=== PATIENT | male | born 1935 | race Caucasian/White ===

== ENCOUNTER → 2018-01-26 | Outpatient (CLI) | payer OTHER | LOC: FIMAGING 11:19 | PROVIDERS: ATTEND Internal Medicine | DX: J98.11 Atelectasis (principal); E78.5 Hyperlipidemia, unspecified; I48.91 Unspecified atrial fibrillation; R06.02 Shortness of breath; Z95.2 Presence of prosthetic heart valve ==

== ENCOUNTER 2018-05-18 09:02 | Observation (INO) | payer OTHER ==
--- NOTE | 2018-05-18 09:20 | CPEKG ---
Heart Rate: 87 RR Interval: 690 QRSD Interval: 88 QT Interval: 396 QTC Interval: 477 QRS [place]: -86 T Wave G[place]: 54 EKG Severity - ABNORMAL ECG - EKG Impression: ATRIAL FIBRILLATION, V-RATE 72-106 EKG Impression: MULTIFORM VENTRICULAR PREMATURE COMPLEXES EKG Impression: INFERIOR INFARCT, OLD EKG Impression: BORDERLINE R WAVE PROGRESSION, ANTERIOR LEADS EKG Impression: BORDERLINE PROLONGED QT INTERVAL Electronically Signed By: Nataly Sams 18-May-2018 15:01:24
--- NOTE | 2018-05-18 09:24 | EDPHY ---
H & P Stated Complaint: 3 episodes of 'garbled speech' since . H/A's. Time Seen by Provider: 05/18/18 09:19 HPI/ROS: CHIEF COMPLAINT: Speech difficulty HISTORY OF PRESENT ILLNESS: The patient is an anticoagulated 82 y/o male arriving with his at the recommendation of his check pilot for evaluation of intermittent speech difficulty over the last couple days. His medical history is significant for atrial fibrillation (Eliquis), stroke 2 years ago, and two aortic valve repairs one of these after his recent stroke ([facility] two years ago). Per his , he had word-finding difficulty on Friday and Friday "and when he did speak the words were gibberish." Yesterday, while at a republican the patient noticed the same garbled speech when talking with a friend. These episodes lasted less than a minute each time. He had a headache 2 nights ago "and days before that" per . He did not take any medication for this headache and it has resolved. He has noticed infrequent right or left hand tingling over the last year, but not obviously associated with his recent symptoms. He denies fever, chest pain, dyspnea, confusion, recent vision changes , recent trauma. He did see his GI over a week ago and was started on antibiotics for suspected c-difficile. He is having 2-3 episodes daily of diarrhea, which is an improvement since starting antibiotics. He is compliant with his medications including his Eliquis. REVIEW OF SYSTEMS: A 10 point review of systems was performed and is negative with the exception of the elements mentioned in the history of present illness. Past medical history: 1. Atrial fibrillation 2. Stroke 2 years ago, went to [facility], recommended redoing valve repair 3. C-difficile infections 4. Emphysema Past surgical history: 1. Aortic valve replacement 2. Aortic root and valve replaced again after stroke 2 yrs ago Family history: Noncontributory Social history: at bedside. Nonsmoker. Whiskey daily. 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 Forensic Anthropologist: Dr. Mcnamara. Adult Physical: General Appearance: Alert, no acute distress. BP 133/88. Eyes: Pupils equal and round, no conjunctival injection, no discharge. ENT, Mouth: Mucous membranes are moist, no oropharyngeal erythema or edema. Neck: No lymphadenopathy, supple. Respiratory: Lungs have expiratory wheezes to auscultation bilaterally; no rales or rhonchi. Cardiovascular: Regular rate and rhythm; no murmur, rub, or gallop. Gastrointestinal: Abdomen is soft and non tender, no masses or organomegaly. Skin: Warm and dry, no rashes, normal color. Back: Nontender to palpation over the thoracolumbar spine. Extremities: No lower extremity edema, no calf tenderness or swelling. Neurological: Alert and oriented. Moving all four extremities easily and equally. Cranial nerves II through XII are examined and are intact (visual acuity not tested). Strength is 5 over 5 bilaterally with testing of all major motor groups. Sensation is intact to light touch over all 4 extremities. Deep tendon reflexes are 1+ in the biceps and knees bilaterally. Gait is normal. Pawcvs-gu-itpi is performed accurately. Psychiatric: Normal affect. - Personal History Current Tetanus Diphtheria and Acellular Pertussis (TDAP): Yes - Medical/Surgical History Hx Asthma: No Hx Chronic Respiratory Disease: No Hx Diabetes: No Hx Cardiac Disease: Yes Hx Renal Disease: No Hx Cirrhosis: No Hx Alcoholism: No Hx HIV/AIDS: No Hx Splenectomy or Spleen Trauma: No Other PMH: .aortic valve replacement/04/24/16 GB removal/a fob - Social History Smoking Status: Former smoker Constitutional: Initial Vital Signs Temperature (C) 36.8 C 05/18/18 09:03 Heart Rate 89 05/18/18 09:03 Respiratory Rate 16 05/18/18 09:03 Blood Pressure 133/88 H 05/18/18 09:03 O2 Sat (%) 92 05/18/18 09:03 O2 Delivery Mode Room Air Allergies/Adverse Reactions: No Known Allergies Allergy (Verified 09/17/16 09:18) Home Medications: Medication Instructions Recorded Metoprolol Tartrate [Lopressor 25 25 mg PO BID 04/24/16 mg (*)] Albuterol [Proventil Inhaler HFA 1 - 2 puffs IH DAILY PRN 09/17/16 (*)] Fluticasone Nasal [Flonase Nasal 1 sprays NASAL DAILY PRN 09/17/16 [place] (RX)] Tadalafil [Cialis] 5 mg PO DAILY 09/17/16 Amoxicillin Trihydrate 500 mg PO Q6HRS 05/18/18 [Amoxicillin] Apixaban [Eliquis] 2.5 mg PO BID 05/18/18 Cetirizine [ZyrTEC 10 mg (*)] 10 mg PO DAILY PRN 05/18/18 Cholestyramine (with Sugar) 4 gm PO DAILY PRN 05/18/18 [Cholestyramine Packet] Escitalopram Oxalate [Lexapro] 20 mg PO HS 05/18/18 Fluticasone/Vilanterol [Breo 1 each IH DAILY 05/18/18 Ellipta 100-25 Mcg INH] Vancomycin [Vancomycin (*)] 125 mg PO BID 05/18/18 Medical Decision Making - Diagnostics Imaging Results: Imaging Impressions Brain MRI 05/18/18 09:54 Impression: Underlying atrophy and advanced white matter microvascular ischemic gliosis. Prior infarction inferior aspect right cerebellar hemisphere. No evidence of acute cortical ischemia. Results called to Dr. Nataly Sams at 11:20 a.m. Imaging: Discussed imaging studies w/ freight caller Radiologist, I viewed and interpreted images myself ED Course/Re-evaluation: This is an anticoagulated 82 y/o male with significant cardiac history and prior stroke history who presents for evaluation following three brief episodes of word-finding and garbled speech over the last 3 days with associated headache. Neuro exam is nonfocal here; no aphasia. Story is concerning for TIAs. Plan for IV, labs, EKG, brain MRI, and admission if patient is amenable. The 12 lead EKG was interpreted by myself. Atrial fibrillation. See hard copy and/or "tracemaster" electronic copy for interpretation. Labs unremarkable. Brain MRI: No acute stroke, old right cerebellar stroke, atrophy, white matter disease. Dr. Mcnamara, check pilot, assessed patient at bedside. He would like carotid US , neurology consult, and MRI (has been done) for TIA work up. Spoke with hospitalist service. Dr. Taylor accepts admission. Patient remained stable while in the emergency department. He had no episodes of speech difficulty. Differential Diagnosis: I considered a differential diagnosis that includes but is not limited to CVA ( ischemic or hemorrhagic), TIA, seizure, electrolyte abnormality, and infection. - Data Points Laboratory Results: Laboratory Results 05/18/18 09:30 05/18/18 09:30 05/18/18 05/18/18 05/18/18 09:30 09:30 09:30 WBC 8.73 10^3/uL 10^3/uL (3.80-9.50) RBC 5.22 10^6/uL 10^6/uL (4.40-6.38) Hgb 16.1 g/dL g/dL (13.7-17.5) Hct 47.6 % % (40.0-51.0) MCV 91.2 fL fL (81.5-99.8) MCH 30.8 pg pg (27.9-34.1) MCHC 33.8 g/dL g/dL (32.4-36.7) RDW 12.9 % % (11.5-15.2) Plt Count 191 10^3/uL 10^3/uL (150-400) MPV 10.1 fL fL (8.7-11.7) Neut % (Auto) 70.7 % % (39.3-74.2) Lymph % (Auto) 17.4 % % (15.0-45.0) [place] % (Auto) 8.2 % % (4.5-13.0) Eos % (Auto) 2.4 % % (0.6-7.6) Baso % (Auto) 0.7 % % (0.3-1.7) Nucleat RBC Rel Count 0.0 % % (0.0-0.2) Absolute Neuts (auto) 6.17 10^3/uL 10^3/uL (1.70-6.50) Absolute Lymphs (auto) 1.52 10^3/uL 10^3/uL (1.00-3.00) Absolute Monos (auto) 0.72 10^3/uL 10^3/uL (0.30-0.80) Absolute Eos (auto) 0.21 10^3/uL 10^3/uL (0.03-0.40) Absolute Basos (auto) 0.06 10^3/uL 10^3/uL (0.02-0.10) Absolute Nucleated RBC 0.00 10^3/uL 10^3/uL (0-0.01) Immature Gran % 0.6 % % (0.0-1.1) Immature Gran # 0.05 10^3/uL 10^3/uL (0.00-0.10) PT 15.1 SEC H SEC (12.0-15.0) INR 1.17 H (0.83-1.16) APTT 30.9 SEC SEC (23.0-38.0) Sodium 136 mEq/L mEq/L (135-145) Potassium 4.4 mEq/L mEq/L (3.3-5.0) Chloride 105 mEq/L mEq/L (97-110) Carbon Dioxide 21 mEq/l L mEq/l (22-31) Anion Gap 10 mEq/L mEq/L (8-16) BUN 20 mg/dL mg/dL (7-23) Creatinine 1.1 mg/dL mg/dL (0.7-1.3) Estimated GFR > 60 Glucose 137 mg/dL H mg/dL (70-100) Calcium 9.0 mg/dL mg/dL (8.5-10.4) Departure - Departure Disposition: [facility] Inpatient Acute Clinical Impression: Garbled speech TIA (transient ischemic attack) Qualifiers: Transient cerebral ischemia type: other Qualified Code(s): G45.8 - Other transient cerebral ischemic attacks and related syndromes Condition: Fair Report Scribed for: Nataly Sams Report Scribed by: Kim Bliss Date of Report: 05/18/18 Time of Report: 09:40 Physician Review and Approval Statement: 05/18/18 15:16 Portions of this note were transcribed by the medical office administrator. I, Dr. Nataly Sams, personally performed the history, physical exam, and medical decision- making; and confirmed the accuracy of the information in the transcribed note.
[2018-05-18 10:14] LABS: PLATELET COUNT 191 10^3/uL (150-400)
[2018-05-18 10:24] LABS: INR 1.17 (0.83-1.16); PROTIME(PATIENT) 15.1 SEC (12.0-15.0)
[2018-05-18] MEDS ORDERED: ONDANSETRON DISINTEGRATING 4 MG TAB PO PRN (11:45)
[2018-05-18] MEDS ORDERED: ONDANSETRON 4 MG/2 ML VIAL IVP PRN (11:45)
[2018-05-18] MEDS ORDERED: IOPAMIDOL (ISOVUE 370) 100 ML BTL IV ONE (12:28)
[2018-05-18] MEDS ORDERED: LABETALOL HCL 5 MG/ML 20 ML MDV IVP PRN (12:52)
--- NOTE | 2018-05-18 14:04 | GHP ---
[f rep st] HISTORY AND PHYSICAL DATE OF ADMISSION: 05/18/2018 CHIEF COMPLAINT: Garbled speech. PRIMARY SURGICAL TECHNICIAN: Glenn Mcnamara MD. HPI: 82-year-old male with history of atrial fibrillation on Eliquis, aortic stenosis status post repair, who was advised by his fresh foods technician to be evaluated for TIA. Per his , he has had word difficulty finding on Friday, Friday. They were at a alliance party last night and he said he could not get the words out so left. He spoke to his fresh foods technician who recommended he come in for further evaluation. Denies any focal weakness. Has had intermittent headaches over the last couple of days. No slurred speech or vision changes. He is currently on treatment for C difficile. Denies any other infectious symptoms. REVIEW OF SYSTEMS: I completed a 10-point review of systems, negative except as noted in HPI. PAST MEDICAL HISTORY: 1. COPD. 2. History of prior stroke. 3. BPH. 4. Atrial fibrillation on Eliquis. 5. Aortic stenosis, status post atrial valve repair x2 in 2006 and 2015. 6. Coronary artery disease. 7. Zoster. 8. Hyperlipidemia. 9. Chronic hypoxic respiratory failure. 10. PVCs. PAST SURGICAL HISTORY: Cardiac ablation, atrial valve replacements in 2006 and then aortic root and valve replacement 2015, appendectomy, cholecystectomy, diskectomy, lumbar surgery. SOCIAL HISTORY: He lives with his . They have been 42 years. 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 Prior tobacco history, quit 30 years ago. Drinks 1 liquor beverage a night. No illicits. FAMILY HISTORY: Noncontributory. ALLERGIES: None. HOME MEDICATIONS: Eliquis, potassium, metoprolol 25 mg, Lasix, Flonase, colchicine, Cialis, allopurinol, albuterol, vancomycin. Awaiting med reconciliation to further detail meds. PHYSICAL EXAM: VITAL SIGNS: Temperature 37. Blood pressure is 121 to 160 over 80 over 102. Heart rate is in the 70s, respirations 18, 93% on room air. GENERAL: Well-appearing male in no acute distress. HEENT: PERRLA. EOMI. Soft-spoken. CV: Irregularly irregular. No murmurs, gallops, or rubs. LUNGS : Clear. No crackles or wheezing. ABDOMEN: Obese, but soft, nontender, and nondistended. Positive bowel sounds. : No Curry. MUSCULOSKELETAL: 5/5 upper, lower extremity strength. NEUROLOGIC: 2-12 intact. Normal sensation to touch. Symmetric patellar reflexes. PSYCH: Alert and oriented x3. TEST DATA: 1. EKG personally reviewed by me. Atrial fibrillation with PVCs. 2. Carotid Doppler less than 50% stenosis in the right ICA and left ICA. 3. Brain MRI: Prior infarction inferior aspect of the right cerebellar hemisphere. No evidence of acute ischemia. ASSESSMENT AND PLAN: 1. Garbled speech: Concern for transient ischemic attack. He is currently without symptoms. His MRI does not show acute ischemia, but an old cerebellar infarct. He is anticoagulated on Eliquis. He is not on aspirin as he is fearful of this in combination of Eliquis for a bleed. Query if this could be unmasking his old stroke with his acute gastric infection. Dr. Brannon with Neurology will evaluate. Echocardiogram and CTA are pending. Control blood pressure per protocol. Physical Therapy, Occupational Therapy, and Speech evaluations. 2. Chronic obstructive pulmonary disease. No evidence of exacerbation. 3. History of coronary artery disease. Resume home medications. 4. History of aortic stenosis status post valve replacement x2. Dr. Mcnamara has evaluated patient. 5. Benign prostatic hypertrophy. Resume home medications. 6. Diet regular. 7. Deep vein thrombosis prophylaxis. Sequential compression devices. He is on Eliquis. 8. Recent C diff infection: on BID dosing outpatient, change to QID 9. Code status: DNR DISPOSITION: Patient warrants observation admission given concern for TIA warranting further imaging, neurology consultation, echocardiogram. /[id number]/MODL MTDD
[2018-05-18] MEDS ORDERED: CETIRIZINE 10 MG TAB PO PRN (16:30)
[2018-05-18] MEDS ORDERED: FLUTICASONE NASAL 120 SPRAYS/16 GM MDI EACHNARE PRN (16:30)
[2018-05-18] MEDS ORDERED: CHOLESTYRAMINE/SUCROSE 4 GM PKT PO PRN (16:30)
[2018-05-18] MEDS ORDERED: ALBUTEROL 60 PUFFS/8 GM MDI IH PRN (16:30)
[2018-05-18] MEDS ORDERED: VANCOMYCIN 125 MG/2.5 ML UDL PO SCH (16:45)
[2018-05-18] MEDS: ACETAMINOPHEN 325 MG TAB PO PRN (18:27)
[2018-05-18] MEDS: APIXABAN 5 MG TAB PO SCH (20:31)
[2018-05-18] MEDS: METOPROLOL TARTRATE 25 MG TAB PO SCH (20:32)
[2018-05-18] MEDS: VANCOMYCIN 125 MG/2.5 ML UDL PO SCH (20:33)
[2018-05-18] MEDS ORDERED: ESCITALOPRAM OXALATE 10 MG TAB PO SCH (21:00)
[2018-05-18] MEDS ORDERED: NON-FORMULARY NEW DRUG (Vancomycin 125 MG) PO SCH (21:00)
[2018-05-18] MEDS ORDERED: APIXABAN 2.5 MG TAB PO SCH (21:00)
[2018-05-19] MEDS ORDERED: Fluticasone/Vilanterol [Breo Ellipta 100-25 Mcg Inh] IH SCH (09:00)
[2018-05-19] MEDS: ACETAMINOPHEN 325 MG TAB PO PRN (09:40)
[2018-05-19] MEDS: VANCOMYCIN 125 MG/2.5 ML UDL PO SCH (09:40)
[2018-05-19] MEDS: APIXABAN 5 MG TAB PO SCH (09:44)
[2018-05-19] MEDS: METOPROLOL TARTRATE 25 MG TAB PO SCH (09:44)
--- NOTE | 2018-05-19 09:56 | NEUROPROG ---
Assessment: [id number] - Neurology Consult: - CC: Probable TIA causing speech disturbance - HPI: Pt on Eliquis for afib and prior right cerebellar stroke reported since 05/14/18 he has had 3 episodes of speech disturbance lasting < 1 minute with return to normal afterwards. He denied any other associated neurologic issues. He did report 1 week ago he began abx for C.diff. He denied missing any Eliquis dosing. He was admitted by [facility] on 05/18/18 for a TIA evaluation. Brain MRI on showed no acute stroke or any acute changes. CTA head and carotid U/S showed some atherosclerotic disease of the ICAs but it was < 50%. I initially saw the patient on 05/19/18. His neurologic exam was normal. He denied any complaints and said he felt back to normal. - PMHx: afib on Eliquis, prior R cerebellar CVA, heart valve surgery, emphysema, C -diff infx - SHx: nonsmoker FHx: NC - ROS: Pt denied acute fever, total vision loss, active severe chest pain, respiratory failure, total body severe rash, total bowel/bladder incontinence, psychosis, active seizures, or active bleeding - O: VS reviewed General: Alert Eyes: Fundoscopic exam not able to visualize optic disks CV: Heart RRR, no murmur, no carotid bruit Lungs: Clear to auscultation bilaterally, no rhonchi or rales Neuro: - Mental: . Oriented x person/place/date . concentration appears normal . speech fluency/comprehension normal . memory appears normal . fund of knowledge appear intact - Cranial Nerves: . II: PERRL, VFFTC . III/IV/: EOMI, no nystagmus, normal smooth pursuits, no Ptosis . V: facial sensation intact to LT . VII: face symmetric to eye closure and smile . VIII: hearing intact to conversation . IX/X: uvula raises symmetrically . XI: SCM 5/5 B/L strength . XII: tongue protrudes midline w/nl strength - Motor: . Tone: normal tone in all 4 extremity . Strength: no pronator drift, strength 5/5 throughout (B/L delt, bic, tri, hand water engineer, hf/he, df/pf) - Reflexes: B/L bic/BR/patella 2/4 - Sensory: all 4 extremity intact to light touch - Coord: [id number] wnl, TONIE wnl, [id number]-[id number] wnl - Gait: deferred - NIH SS 0 - Labs: 05/18/18- CBC wnl, INR 1.17H, Chem CO2 21L Gluc 137H, H1AC 5.5, LDL 72 - Rads: 05/18/18- Brain MRI w/o con: Underlying atrophy and advanced white matter microvascular ischemic gliosis. Prior infarction inferior aspect right cerebellar hemisphere. No evidence of acute cortical ischemia. (I personally visualized the images on 05/18/18) 05/18/18- Carotid U/S: B/L carotid stenosis (< 50%) 05/18/18- Head CTA: mod atherosclerosis in b/l ICAs - Assessment: 1. TIA causing 3 episodes of < 1 minute of speech disturbance between 05/14/18 and 05/18/18: Neurologic exam on 05/19/18 was normal. I am not sure if his transient speech disturbance episodes are a sundowning effect possibly from mild vascular dementia (given prior stroke) or less likely 3 TIAs with no MRI stroke seen. He also has atherosclerotic disease in his B/L carotids (< 50%). I recommend a statin with LDL goal < 70 to address possible TIA and b/l carotid atherosclerotic disease. Otherwise continue Eliquis dosing. - 2. Afib with prior R cerebellar CVA, on Eliquis - Plan: - Work closely with PCM to ensure blood pressure < 140/90, H1AC < 7.0, and LDL < 70 - Recommend statin for LDL goal < 70 (72) - Blood pressure < 140/90 - TTE to ensure no cardiac thrombus - Continue Eliquis for stroke prevention in setting of afib and prior stroke - PT/OT/SPeech evaluation for any rehab needs - No further neurologic w/u needed, neurology will sign off - F/U in neurology clinic 1-4 weeks after discharge with Dr. Brannon Objective: Vital Signs Temp Pulse Resp BP Pulse Ox 36.3 C 75 19 140/110 H 99 05/19/18 08:00 05/19/18 08:56 05/19/18 08:56 05/19/18 08:00 05/19/18 08:56 05/18/18 05/19/18 05/20/18 05:59 05:59 05:59 Intake Total 400 Output Total 150 Balance 250 PT 15.1 SEC (12.0-15.0) H 05/18/18 09:30 INR 1.17 (0.83-1.16) H 05/18/18 09:30 Allergies/Adverse Reactions: No Known Allergies Allergy (Verified 09/17/16 09:18)
--- NOTE | 2018-05-19 12:23 | HOSPPROG ---
Hospitalist Progress Note Assessment/Plan: Patient is an 82 y/o male who presented to the ER with garbled speech. Today is my first encounter w the patient, chart reviewed. *TIA w associated garbled speech -Brain MRI w/o con: Underlying atrophy and advanced white matter microvascular ischemic gliosis. Prior infarction inferior aspect right cerebellar hemisphere. No evidence of acute cortical ischemia. -Carotid U/S: B/L carotid stenosis (< 50%) - Head CTA: mod atherosclerosis in b/l ICAs -add a statin, LDL is 72 -A1C is stable at 5.5 -? concern if these transient speech disturbance episodes are from mild vascular dementia w given prior stroke -goal bp <140/90 -reviewed telemetry and he has been in afib rate controlled -echo pending now, tech doing this, reviewed with Dr Brannon and he wanted this done prior to dc to ensure no cardiac thrombus *Afib with prior right cerebellar CVA -Eliquis *Hx of c diff -per patient and , he was started on oral vancomycin for likely C diff -he's to be on antibiotics for an upcoming dental procedure/discussed with doctor bank consultant for PCP and they are aware he will be started on abx *COPD -no exacerbation *hx of s/p valve replacement *BPH -home meds *Plan: reviewed his care w Dr Brannon, will dc after echo is complete. Dr Mcnamara is at the bedside Subjective: Patient has no complaints, ready to be dc. Delmy at bedside. Objective: Vital Signs Temp Pulse Resp BP Pulse Ox 36.3 C 75 19 140/110 H 99 05/19/18 08:00 05/19/18 08:56 05/19/18 08:56 05/19/18 08:00 05/19/18 08:56 05/18/18 05/19/18 05/20/18 05:59 05:59 05:59 Intake Total 400 Output Total 150 Balance 250 PT 15.1 SEC (12.0-15.0) H 05/18/18 09:30 INR 1.17 (0.83-1.16) H 05/18/18 09:30 - Physical Exam Constitutional: no apparent distress, appears nourished, not in pain Eyes: PERRL Ears, Nose, Mouth, Throat: hearing normal Cardiovascular: irregularly irregular Respiratory: no respiratory distress Skin: warm Neurologic: AAOx3, CN II-XII Intact, No facial droop Psychiatric: interacting appropriately, not anxious, not encephalopathic, thought process linear ICD10 Worksheet Patient Problems: Problems Problem Status Onset Cholecystitis with cholelithiasis Acute Garbled speech Acute TIA (transient ischemic attack) Acute
[2018-05-19 12:33] VITALS: BP 110/81
[2018-05-19] MEDS ORDERED: ATORVASTATIN CALCIUM 20 MG TAB PO SCH (12:45)
--- NOTE | 2018-05-19 13:21 | ECHO ---
[email or web address] [address] [address] Main: [phone] Fax: [email or web address] Echocardiogram Name: CARLY GOLDBERG MR#: [id number] Study Date: 05/19/2018 Study Time: 12:35 PM Date of : 1935 Age: 82 year(s) Height: 177.8 cm (70 in.) Weight: 95.26 kg (210 lb.) BSA: 2.13 m2 Gender: Male Examination: Echo Indication: ischemic stroke Image Quality: Technically Difficult Contrast: Requested by: Rasta Brannon BP: 110 mmHg/81 mmHg Heart Rate: Rhythm: Indication: ischemic stroke Procedure Staff Supervisor Cold Rolling: Johana Duenas [facility] Reading Physician: Glenn Mcnamara MD Requesting Provider: Conclusions: Normal size left ventricle. No LV hypertrophy. Normal global systolic LV function. The ejection fraction is visually estimated to be 55 %. Right heart dilated. The left atrium is mildly dilated. The mitral valve is normal in appearance and function. Mild to moderate mitral regurgitation. No mitral stenosis is present. Normal functioning aortic valve prosthesis. The prosthetic aortic valve is normal. No prosthesis regurgitation. The pulmonary artery pressure is normal. Normal size ascending aorta measuring 2.8 cm. No change Measurements: Chambers Valvular Assessment AV/MV Valvular Assessment TV/PV Normal Normal Normal Name Value Range Name Value Range Name Value Range Ao Rosanna (2D): 3.1 cm (1.4 cm-2.6 AV Vmax: 1.10 m/s (1 m/s-1.7 TR Vmax: 1.91 mm/s ( - ) cm) m/s) TR PGmax: 15 mmHg ( - ) IVSd (2D): 1.3 cm (0.6 cm-1.1 AV maxP mmHg ( - ) syst. PAP: 20 mmHg ( - ) cm) AV meanP mmHg ( - ) PV Vmax: 0.49 m/s (0.6 m/s-0.9 LVDd (2D): 4.9 cm (4.2 cm-5.9 VALDEZ (VTI): 2.2 cm ( - ) m/s) cm) MV E Vmax: 0.80 m/s ( - ) PV PGmax: 1 mmHg ( - ) LVDs (2D): 3.3 cm (2.1 cm-4 MV A Vmax: 0.26 m/s ( - ) cm) MV E/A: 3.08 ( - ) LVPWd (2D): 1.3 cm (0.6 cm-1 cm) MV PHT: 0.050 s ( - ) MVA (PHT): 4.4 s ( - ) Patient: CARLY GOLDBERG Study Date: 05/19/2018 Page 1 of 2 12:35 PM LVOTd 1.8 cm 1.8 cm mm LVEF (BP): 61 % (>=55 %) Visual EF: 55 % Continued Measurements: Chambers Valvular Assessment AV/MV Valvular Assessment TV/PV Name Value Name Value Name Value LADs: 4.2 cm MV DecTime: 162 m/s CVP (est.): 5 mmHg LADs Lon.2 cm MV E' Septal: 0.08 m/s LA Area: 22.2 cm2 MV E/E' Septal: 10.00 LA Volume: 72 ml MV E/E' Lateral: 9.50 LA Volume Index: 33.8 ml/m2 RA Area: 23.3 cm2 Additional Vessels Name Value Ao Ascendin.8 cm Inferior Vena Cava: 1.8 cm Findings: Left Ventricle: Normal size left ventricle. No LV hypertrophy. Normal global systolic LV function. The ejection fraction is visually estimated to be 55 %. No regional wall motion abnormality. Unable to assess diastolic dysfunction. Right Ventricle: Right heart dilated. Left Atrium: The left atrium is mildly dilated. Bubble study performed in 2016 was negative. Right Atrium: Right atrium appears to be dilated. Mitral Valve: The mitral valve is normal in appearance and function. Mild to moderate mitral regurgitation. No mitral stenosis is present. Aortic Valve: The aortic valve is a bioprosthesis. Normal functioning aortic valve prosthesis. The prosthetic aortic valve is normal. No prosthesis regurgitation. Tricuspid Valve: The tricuspid valve is normal in appearance and function. Trivial tricuspid valve regurgitation. The pulmonary artery pressure is normal. Pulmonic Valve: The pulmonic valve is normal in appearance and function. There is no pulmonic regurgitation seen. Aorta: The aorta is normal. Normal size aortic root measuring 3.1 cm. Normal size ascending aorta measuring 2.8 cm. IVC: The IVC is normal sized. Pericardium: No pericardial effusion. No pleural effusion. (No Signature Object) Patient: CARLY GOLDBERG Study Date: 05/19/2018 Page 2 of 2 12:35 PM [id number]
--- NOTE | 2018-05-19 15:15 | GDS ---
[f rep st] DISCHARGE SUMMARY DISCHARGE DIAGNOSES: 1. Transient ischemic attack with garbled speech. 2. Atrial fibrillation with prior right cerebellar cerebrovascular accident. 3. History of Clostridium difficile. 4. Chronic obstructive pulmonary disease. 5. History of aortic stenosis, status post valve replacement. 6. Benign prostatic hypertrophy. CONSULTATION: Dr. Rasta Brannon. HISTORY: Briefly, the patient is a very nice gentleman who has a history of atrial fibrillation, on Eliquis; aortic stenosis, status post repair, who came to the emergency room to be evaluated for a TIA. Per his , he had some difficulty finding words on Friday and Friday and then had difficulty getting the words out. He was admitted and evaluated by Dr. Brannon. A brain MRI without contrast showed underlying atrophy and advanced white matter microvascular ischemic gliosis. He has a prior infarction, inferior aspect of the right cerebellar hemisphere. He has no evidence of any acute ischemia. Carotid ultrasound showed carotid stenosis less than 50%. CTA showed moderate atherosclerosis in the ICAs. I reviewed the monitor worker. He has been in atrial fibrillation. He was seen and evaluated by Dr. Son Mcnamara, who was at the bedside. Echocardiogram showed nothing acute. HOSPITAL COURSE: 1. TIA. Added statin to his home regimen. 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 2. Atrial fibrillation. He has a prior right cerebellar CVA. Eliquis has been continued and increased to 5 mg bid. 3. History of Clostridium difficile. The patient and his said he was started on oral vancomycin for likely Clostridium difficile. He will be on antibiotics for an upcoming dental procedure. I discussed this with the doctor regional account manager for his primary care provider that he will be started on antibiotics and to be aware of this. 4. COPD. No exacerbation. 5. History of aortic stenosis, status post valve replacement. 6. Benign prostatic hypertrophy. Home medications have been resumed. DISCHARGE CONDITION: Stable. Blood pressure is 110/81. Heart rate is 71. Respiratory rate is 16. O2 sats on room air 94%. Temperature is 36.4 Celsius. DISCHARGE MEDICATIONS: Please see the EMR. DISCHARGE INSTRUCTIONS: 1. To follow up with Dr. Brannon in the next 1-4 weeks. 2. A script for Lipitor was sent to [facility]. 3. Discussed with Dr. Mcnamara about taking aspirin, along with Eliquis. 4. In regard to oral vancomycin, continue his therapy until he is done. He should discuss with Dr. Freeman or Dr. Avila about antibiotics any time they are ordered by his dentist. 5. His dose of Eliquis has been increased from 2.5 mg bid to 5 mg bid. Copy requested to: Dr. Austin Freeman /[id number]/MODL MTDD
--- NOTE | 2018-05-19 15:33 | ASMTCMCOM ---
CM Note CM Note Notes: PT/OT rec home. Pt medically stable for d/c, no CM d/c needs identified. Date Signed: 05/19/2018 03:32 PM Electronically Signed By:LAZARO Latif
== END 2018-05-19 15:00 | disposition home or self-care (01) ==
LOC: F3N 12:31
PROVIDERS: ADMIT Internal Medicine; ATTEND Student in an Organized Health Care Education/Training Program
DX: G45.9 Transient cerebral ischemic attack, unspecified (principal); I48.91 Unspecified atrial fibrillation; R29.700 NIHSS score 0; J96.11 Chronic respiratory failure with hypoxia; E78.5 Hyperlipidemia, unspecified; I67.2 Cerebral atherosclerosis; I77.89 Other specified disorders of arteries and arterioles; J44.9 Chronic obstructive pulmonary disease, unspecified; N40.0 Benign prostatic hyperplasia without lower urinary tract symptoms; I35.0 Nonrheumatic aortic (valve) stenosis; I25.10 Atherosclerotic heart disease of native coronary artery without angina pectoris; Z79.01 Long term (current) use of anticoagulants; Z79.2 Long term (current) use of antibiotics; Z87.891 Personal history of nicotine dependence; Z86.19 Personal history of other infectious and parasitic diseases; Z86.73 Personal history of transient ischemic attack (TIA), and cerebral infarction without residual deficits; Z95.3 Presence of xenogenic heart valve
CPT/HCPCS: 70496; 70551; 92523; 93005; 93306; 93880; 97161; 97165; 99285; G0378; G8978; G8979; G8980; G8987; G8988; G8989; G9168; G9169; Q9967